=== PATIENT | male | born 1985 | race Two or more races ===

== ENCOUNTER 2024-11-25 09:18 | Day surgery (SDC) | payer OTHER ==
[2024-11-25] MEDS ORDERED: Sodium Chloride 0.9% 10 ML Syringe FLUSH PRN (09:39)
[2024-11-25] MEDS: ceFAZolin 2 GM Vial IVPUSH ONE (10:06)
[2024-11-25] MEDS: Diphtheria,Pertussis(Acell),Tetanus Vaccine 0.5 ML Syringe IM ONE (10:07)
[2024-11-25] MEDS: HYDROmorphone 1 MG/ML Syringe IVPUSH ONE (10:08)
[2024-11-25] MEDS ORDERED: Propofol 200 MG/20 ML SDV ONE ×3 (12:20→13:04)
[2024-11-25] MEDS ORDERED: Midazolam 1 MG/ML 2 ML SDV ONE (12:46)
[2024-11-25] MEDS ORDERED: Lactated Ringers 1,000 ML ONE (12:46)
[2024-11-25] MEDS ORDERED: fentaNYL 100 MCG/2 ML SDV ONE (12:48)
[2024-11-25] MEDS ORDERED: ceFAZolin 2 GM Vial ONE (12:51)
[2024-11-25] MEDS: Lidocaine 1% 10 ML MDV ONE (13:06)
[2024-11-25] MEDS: Bupivacaine 0.25% 10 ML SDV ONE (13:06)
== END 2024-11-25 14:05 | disposition home or self-care (01) ==
LOC: JD.ED 09:18 → JD.SDS 11:52
PROVIDERS: ATTEND Orthopaedic Surgery
DX: S68.110A Complete traumatic metacarpophalangeal amputation of right index finger, initial encounter (principal); W24.0XXA Contact with lifting devices, not elsewhere classified, initial encounter
CPT/HCPCS: 26236; 73140; 90471; 90715; 96374; 96375; 99284; J0665; J0690; J1171; J2250; J2704; J3010; J7120; 01830; 99140; J3490